=== PATIENT | female | born 1995 | race Caucasian/White ===

== ENCOUNTER 2017-01-14 15:24 | Emergency (ER) | payer BC ==
[~2017-01-14] VITALS: Ht 157.5 cm; Wt 60.4 kg
[~2017-01-14 15:24] MED LIST: BCPILLS PO; IBUP-1459 PO; MONT1TAB3 PO
[2017-01-14 15:32] VITALS: TEMP 37; Ht 157.5 cm; Wt 60.4 kg
[2017-01-14] MEDS ORDERED: CETI10TA84 PO (16:07)
[2017-01-14] MEDS ORDERED: SODIUM CHLORIDE 0.9% 1000ML 1,000 ML IV ONE (16:15)
[2017-01-14] MEDS ORDERED: MoRPHine SULFATE 4 MG/ML 1 ML CARP\\VIAL IV PRN (16:15)
[2017-01-14] MEDS ORDERED: ONDANSETRON INJ 2 MG/ML 2 ML VIAL IV PRN (16:15)
--- NOTE | 2017-01-14 16:15 | EMERGENCY ROOM VISIT NOTE ---
History First contact with patient: 15:50 Chief Complaint: GI ASSESSMENT Stated Complaint: ABD. PAIN, BLOODY STOOL, N,V Nursing Triage Summary: Pt. reports that around 3am this morning, she woke up with severe abdominal pain that was bad enough to cause her to vomit. She reports that it is common for her to have abdominal pain and her bowels do not move frequently, but this pain was different and worse than usual. Pt. also reports that around the same time as the onset of pain, she had diarrhea for about an hour. 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 She states that she had an episode of diarrhea that was bright red and appeared to have blood clots in it. History of Present Illness The patient is a 21 year old female who presents to the Emergency Room with complaints of severe abdominal cramping and bright red blood in her stool that started in the middle the night last night. The patient has had multiple bloody bowel movements today. She denies any blood clots. She describes her abdominal pain as cramping and severe. She also had one episode of emesis. She denies any lightheadedness or dizziness. No sick contacts or travel. She denies any fever or chills. The patient does struggle with frequent constipation. Review of Systems 10 system review performed and negative unless noted in HPI or below Past Medical/Surgical History Medical Problems: (1) Abdominal Pain, Epigastric (2) Asthma, Unspecified (3) Headache (4) Knee Joint Replacement Status Family History Cancer Kidney disease Social History Smoking Status: Never Smoker Alcohol Use: occasionally Housing Status: lives with roommate Occupation Status: [employer] student Current/Historical Medications Scheduled Control Pills ( Control Pills), 1 TAB PO DAILY Cetirizine (Zyrtec), 10 MG PO DAILY Montelukast Sodium (Singulair), 10 MG PO DAILY Scheduled PRN Hydrocodone/Acetaminophen 5MG/325MG ([place] 5MG/325MG), 1-2 TABLET PO Q4H PRN for Pain Hydrocodone/Acetaminophen 5MG/325MG ([place] 5MG/325MG), 1-2 TABLET PO Q4H PRN for Pain Physical Exam Vital Signs Date Time Temp Pulse Resp B/P (MAP) Pulse Ox O2 Delivery O2 Flow Rate FiO2 10/3/17 19:58 56 16 131/83 100 01/14/17 18:33 75 16 118/82 98 Room Air 01/14/17 18:00 63 14 111/81 93 Room Air 01/14/17 17:30 59 19 111/68 98 Room Air 01/14/17 16:30 71 16 118/83 98 Room Air 01/14/17 16:21 63 01/14/17 15:50 72 12 128/84 98 Room Air 01/14/17 15:32 37.0 74 18 140/101 100 Physical Exam VITALS: Vitals are noted on the nurse's note and reviewed by myself. Vital signs stable. GENERAL: 21-year-old female, in no acute distress, nondiaphoretic, well- developed well-nourished. SKIN: The skin was without rashes, erythema, edema, or bruising. HEAD: Normocephalic atraumatic. MOUTH: Mucous membranes moist. NECK:. No JVD. HEART: Regular rate and rhythm without murmurs gallops or rubs. LUNGS: Clear to auscultation bilaterally without wheezes, rales or rhonchi. No accessory muscle use. ABDOMEN: Bowel sounds hypoactive..Soft, tenderness to palpation in the epigastric and left lower quadrant., without organomegaly. No guarding or rebound tenderness. MUSCULOSKELETAL: No muscle atrophy, erythema, or edema noted. Strength 5/5 throughout. NEURO: Patient was alert and oriented to person place and time. Normal sensation to touch. No focal neurological deficits. Medical Decision & Procedures ER Provider Diagnostic Interpretation: CT SCAN OF THE ABDOMEN AND PELVIS WITH IV CONTRAST CLINICAL HISTORY: Epigastric and left lower quadrant abdominal pain. COMPARISON STUDY: Abdominal radiograph dated 01/09/2014. TECHNIQUE: Following the IV administration of 116 cc of Optiray 320, CT scan of the abdomen and pelvis is performed from the lung bases to the proximal femora. Images are reviewed in the axial, sagittal, and coronal planes. IV contrast was administered without complication. A dose lowering technique was utilized adhering to the principles of ALARA. CT DOSE: 285.16 mGy.cm FINDINGS: Lung bases: The heart is normal in size and without pericardial effusion. Trace pleural effusions are noted. The lung bases are otherwise clear. Liver: The contrast-enhanced liver is mildly enlarged measuring 20 cm in length. The liver is normal in contour and attenuation. Fatty infiltration is seen adjacent to the falciform ligament. There is no intrahepatic biliary ductal dilatation. The hepatic veins and portal veins are patent. Gallbladder: Unremarkable. Spleen: Normal in size and attenuation. Pancreas: Unremarkable. Adrenal glands: Unremarkable. Kidneys: The contrast enhanced kidneys are normal in size and without hydronephrosis. The kidneys enhance symmetrically. Abdominal vasculature: The abdominal aorta is normal in course and caliber. Bowel: No bowel obstruction is identified. There is colonic wall thickening and edema seen involving predominantly the descending colon. There is faint pericolonic stranding and the appearance is consistent with a nonspecific colitis. Minimal inflammation is also suggested involving the right colon. The appendix is normal as visualized. Peritoneum: There is no intraperitoneal free air or abdominal ascites. There is a small fat-containing umbilical hernia. Lymphadenopathy: None. Pelvic viscera: The bladder, uterus, and adnexa are within normal limits. Small ovarian follicles are incidentally noted. Skeletal structures: No lytic or blastic lesions are seen. IMPRESSION: 1. Findings are consistent with a nonspecific colitis, predominately involving the left colon. This is likely on an infectious/inflammatory basis in this age group. 2. Mild hepatic enlargement. 3. Trace pleural effusions. Laboratory Results 01/14/17 15:51 Red Blood Count 4.65, Mean Corpuscular Volume 85.6, Mean Corpuscular Hemoglobin 30.8, Mean Corpuscular Hemoglobin Concent 35.9, Mean Platelet Volume 11.1, Neutrophils (%) (Auto) 79.9, Lymphocytes (%) (Auto) 12.6, Monocytes (%) (Auto) 4.6, Eosinophils (%) (Auto) 2.4, Basophils (%) (Auto) 0.3, Neutrophils # (Auto) 11.20, Lymphocytes # (Auto) 1.76, Monocytes # (Auto) 0.64, Eosinophils # (Auto) 0.33, Basophils # (Auto) 0.04 01/14/17 15:51 Test 01/14/17 15:51 01/14/17 16:25 White Blood Count 14.00 K/uL (4.8-10.8) Red Blood Count 4.65 M/uL (4.2-5.4) Hemoglobin 14.3 g/dL (12.0-16.0) Hematocrit 39.8 % (37-47) Mean Corpuscular Volume 85.6 fL (80-100) Mean Corpuscular Hemoglobin 30.8 pg (25-34) Mean Corpuscular Hemoglobin Concent 35.9 g/dl (32-36) Platelet Count 235 K/uL (130-400) Mean Platelet Volume 11.1 fL (7.4-10.4) Neutrophils (%) (Auto) 79.9 % Lymphocytes (%) (Auto) 12.6 % Monocytes (%) (Auto) 4.6 % Eosinophils (%) (Auto) 2.4 % Basophils (%) (Auto) 0.3 % Neutrophils # (Auto) 11.20 K/uL (1.4-6.5) Lymphocytes # (Auto) 1.76 K/uL (1.2-3.4) Monocytes # (Auto) 0.64 K/uL (0.11-0.59) Eosinophils # (Auto) 0.33 K/uL (0-0.5) Basophils # (Auto) 0.04 K/uL (0-0.2) RDW Standard Deviation 38.2 fL (36.4-46.3) RDW Coefficient of Variation 12.3 % (11.5-14.5) Immature Granulocyte % (Auto) 0.2 % Immature Granulocyte # (Auto) 0.03 K/uL (0.00-0.02) Erythrocyte Sedimentation Rate 2 mm/hr (0-21) Anion Gap 9.0 mmol/L (3-11) Est Creatinine Clear Calc Drug Dose 87.6 ml/min Estimated GFR () 110.4 Estimated GFR (Non- 95.2 BUN/Creatinine Ratio 13.4 (10-20) Calcium Level 9.1 mg/dl (8.5-10.1) Total Bilirubin 2.3 mg/dl (0.2-1) Direct Bilirubin 0.4 mg/dl (0-0.2) Aspartate Amino Transf (AST/SGOT) 18 U/L (15-37) Alanine Aminotransferase (ALT/SGPT) 20 U/L (12-78) Alkaline Phosphatase 60 U/L (45-117) C-Reactive Protein 0.32 mg/dl (0-0.29) Total Protein 7.3 gm/dl (6.4-8.2) Albumin 3.8 gm/dl (3.4-5.0) Globulin 3.5 gm/dl (2.5-4.0) Albumin/Globulin Ratio 1.1 (0.9-2) Lipase 279 U/L (73-393) Urine Color YELLOW Urine Appearance CLEAR (CLEAR) Urine pH 6.0 (4.5-7.5) Urine Specific Bishop 1.013 (1.000-1.030) Urine Protein NEG (NEG) Urine Glucose (UA) NEG (NEG) Urine Ketones NEG (NEG) Urine Occult Blood 3+ (NEG) Urine Nitrite NEG (NEG) Urine Bilirubin NEG (NEG) Urine Urobilinogen NEG (NEG) Urine Leukocyte Esterase NEG (NEG) Urine WBC (Auto) 1-5 /hpf (0-5) Urine RBC (Auto) 10-30 /hpf (0-4) Urine Hyaline Casts (Auto) 0 /lpf (0-5) Urine Epithelial Cells (Auto) 10-20 /lpf (0-5) Urine Bacteria (Auto) NEG (NEG) Urine Test NEG (NEG) Date/Time Source Procedure Growth Status 01/14/17 19:50 Stool C.difficile Toxin B Gene (PCR) - Final No C. difficile toxin B gene detected Complete Medications Administered Medications (Trade) Dose Ordered Sig/[place] Route Start Time Stop Time Status Last Admin Dose Admin Morphine Sulfate (MoRPHine SULFATE INJ) 4 mg Q1H PRN IV 01/14/17 16:15 01/14/17 20:11 DC 01/14/17 16:19 4 MG Ondansetron HCl (Zofran Inj) 4 mg Q2H PRN IV 01/14/17 16:15 01/14/17 20:11 DC 01/14/17 16:18 4 MG Sodium Chloride 1,000 ml @ 999 mls/hr Q1H1M ONCE IV 01/14/17 16:15 01/14/17 17:15 DC 01/14/17 16:18 999 MLS/HR ED Course Patient was seen and examined Vital signs including blood pressure were reviewed medications list was verified with patient Labs were obtained, and a saline lock was established She was given morphine 4 mg IV and Zofran 4 mg IV. She was hydrated with 1 L normal saline. Upon reevaluation, the patient was resting much more comfortably. We discussed the results of her workup. She was understanding. I reviewed discharge instructions the patient. They voiced understanding and had no further questions. Medical Decision DIFFERENTIAL DIAGNOSIS: Gastroenteritis, Hepatitis, cholecystitis, cholangitis, biliary colic, pancreatitis, appendicitis, inguinal hernia, nephrolithiasis, inflammatory bowel disease, mesenteric adenitis, peptic ulcer disease, GERD, gastritis, pancreatitis,, bowel obstruction, splenic infarct, diverticulitis, mesenteric ischemia, metabolic, peritonitis, among others. This patient is a 21-year-old female that presents to the emergency department with complaints of bright red blood in her stool and abdominal pain. On exam, she was tender in the left lower quadrant. I had a fairly high suspicion of inflammatory bowel disease. CT scan was performed. It is consistent with a nonspecific colitis of the descending colon, which fits with her symptoms. The etiology is unclear whether or not this is infectious versus inflammatory bowel disease. She was afebrile. She did not complain of any feverish symptoms. She did however have an elevation in her white blood cells. The case was discussed with gastroenterology. The decision was made to hold off on antibiotics. If this is infectious, the patient is otherwise healthy. She is not immunocompromise. She does not appear septic. Dr. Vo will see her in the office tomorrow. She agreed to return to the emergency department with any new or worsening symptoms This chart was completed in part utilizing [employer] Speech Voice Recognition software. Attempts were made to minimize the grammatical errors, random word insertions, pronoun errors and incomplete sentences. Any formal questions or concerns about the content, text or information contained within the body of this dictation should be directly addressed to the provider for clarification. Blood Pressure Screening Patient's blood pressure: Elevated blood pressure Blood pressure disposition: Elevated BP felt to be situational Consults Consulting Physician: Dr. Vo Impression Primary Impression: Colitis Departure Information Dispostion Home / Self-Care Condition FAIR Prescriptions Hydrocodone/Acetaminophen 5MG/325MG ([place] 5MG/325MG) Tab 1-2 TABLET PO Q4H Y for Pain, #12 TAB For Initial Treatment Prov: Tamanna Pendleton PA-C 01/14/17 Hydrocodone/Acetaminophen 5MG/325MG ([place] 5MG/325MG) Tab 1-2 TABLET PO Q4H Y for Pain, #12 TAB For Initial Treatment Prov: Tamanna Pendleton PA-C 01/14/17 Referrals No Doctor, Assigned (PCP) Jc Vo MD Patient Instructions My [facility] Additional Instructions You were evaluated in the emergency department for abdominal pain. It appears that you have some inflammation of your colon. Please drink plenty of fluids over the next 48 hours. It is very important for you to follow up with the GI doctor, Dr. Vo. A number has been provided. Please call in the morning for a follow-up appointment. [place]: Take 1-2 pills every four hours for pain. Avoid alcohol, operating machinery or dangerous equipment, working on ladders or roofs, DRIVING, or situations where being under the influence may be dangerous. It is recommended to use an [id number] stool softener such as Colace, 100mg twice daily while taking this medication to avoid constipation. Return to the emergency department if you have any of the following symptoms: -Fever -Worsening pain -More bleeding
[2017-01-14 16:55] LABS: URINE APPEARANCE CLEAR (CLEAR); URINE BILIRUBIN NEG (NEG); URINE COLOR YELLOW; URINE NITRITE NEG (NEG); URINE SPECIFIC GRAVITY 1.013 (1.000-1.030); UROBILINOGEN NEG (NEG)
[2017-01-14 17:00] LABS: MANUAL MICROSCOPIC REQUIRED? NO; REVIEW REQ? NO
[2017-01-14 17:14] LABS: BASO % 0.3 %; BASO ABS # 0.04 K/uL (0-0.2); COMPLETE YES; EOS % 2.4 %; HEMATOCRIT 39.8 % (37-47); IG% 0.2 %; LYMPH % 12.6 %; LYMPH ABS # 1.76 K/uL (1.2-3.4); MEAN CELL VOLUME 85.6 fL (80-100); MEAN CORPUSCULAR HEMOGLOBIN 30.8 pg (25-34); MEAN CORPUSCULAR HGB CONC 35.9 g/dl (32-36); MEAN PLATELET VOLUME 11.1 fL (7.4-10.4); MONO % 4.6 %; NEUT % 79.9 %; PLATELET COUNT 235 K/uL (130-400); RED BLOOD COUNT 4.65 M/uL (4.2-5.4)
[2017-01-14 17:18] LABS: BUN/CREATININE RATIO 13.4 (10-20); CALCIUM 9.1 mg/dl (8.5-10.1); CREATININE 0.87 mg/dl (0.60-1.20); POTASSIUM 3.5 mmol/L (3.5-5.1)
[2017-01-14 17:21] LABS: ALB/GLOB RATIO 1.1 (0.9-2)
[2017-01-14] MEDS ORDERED: OPTIRAY 320 IV PRN (18:30)
--- NOTE | 2017-01-14 18:51 | DIAGNOSTIC IMAGING REPORT ---
CT SCAN OF THE ABDOMEN AND PELVIS WITH IV CONTRAST CLINICAL HISTORY: Epigastric and left lower quadrant abdominal pain. COMPARISON STUDY: Abdominal radiograph dated 01/09/2014. TECHNIQUE: Following the IV administration of 116 cc of Optiray 320, CT scan of the abdomen and pelvis is performed from the lung bases to the proximal femora. Images are reviewed in the axial, sagittal, and coronal planes. IV contrast was administered without complication. A dose lowering technique was utilized adhering to the principles of ALARA. CT DOSE: 285.16 mGy.cm FINDINGS: Lung bases: The heart is normal in size and without pericardial effusion. Trace pleural effusions are noted. The lung bases are otherwise clear. Liver: The contrast-enhanced liver is mildly enlarged measuring 20 cm in length. The liver is normal in contour and attenuation. Fatty infiltration is seen adjacent to the falciform ligament. There is no intrahepatic biliary ductal dilatation. The hepatic veins and portal veins are patent. Gallbladder: Unremarkable. Spleen: Normal in size and attenuation. Pancreas: Unremarkable. Adrenal glands: Unremarkable. Kidneys: The contrast enhanced kidneys are normal in size and without hydronephrosis. The kidneys enhance symmetrically. Abdominal vasculature: The abdominal aorta is normal in course and caliber. Bowel: No bowel obstruction is identified. There is colonic wall thickening and edema seen involving predominantly the descending colon. There is faint pericolonic stranding and the appearance is consistent with a nonspecific colitis. Minimal inflammation is also suggested involving the right colon. The appendix is normal as visualized. Peritoneum: There is no intraperitoneal free air or abdominal ascites. There is a small fat-containing umbilical hernia. Lymphadenopathy: None. Pelvic viscera: The bladder, uterus, and adnexa are within normal limits. Small ovarian follicles are incidentally noted. Skeletal structures: No lytic or blastic lesions are seen. IMPRESSION: 1. Findings are consistent with a nonspecific colitis, predominately involving the left colon. This is likely on an infectious/inflammatory basis in this age group. 2. Mild hepatic enlargement. 3. Trace pleural effusions. Electronically signed by: Joby Hardin M.D. 01/14/2017 6:50 PM Dictated Date/Time: 01/14/2017 6:40 PM
[2017-01-14] MEDS ORDERED: HYDR-5688 PO ×2 (19:34→19:35)
[2017-01-14 19:58] VITALS: BP 131/83; PULSE 56; O2SAT 100
== END 2017-01-14 19:58 | disposition home or self-care (01) ==
LOC: C.EDB 15:26 → C.EDC 19:58
DX: K52.9 Noninfective gastroenteritis and colitis, unspecified (principal); J45.909 Unspecified asthma, uncomplicated; Z96.659 Presence of unspecified artificial knee joint; Z79.899 Other long term (current) drug therapy; Z80.9 Family history of malignant neoplasm, unspecified; Z84.1 Family history of disorders of kidney and ureter